=== PATIENT | female | born 1975 | race Caucasian/White ===

== ENCOUNTER 2017-06-04 07:52 | Outpatient (CLI) | payer OTHER ==
[~2017-06-04 07:52] MED LIST: AMOX-426 PO
[2017-06-04 09:17] LABS: BASOPHILS % (AUTO) 0.6 % (0.0-2.0); EOSINOPHILS # (AUTO) 0.1 K/uL (0.0-0.4); HEMATOCRIT 33.8 % (36-48); HEMOGLOBIN 10.8 g/dL (12.0-16.0); LYMPHOCYTES # (AUTO) 1.5 K/uL (1.0-5.5); LYMPHOCYTES % (AUTO) 28.4 % (20.5-51.5); MEAN CORPUSCULAR HEMOGLOBIN 26 pg (27-31); MEAN CORPUSCULAR HGB CONC 32 % (32-36); MEAN CORPUSCULAR VOLUME 81 fL (79.0-98.0); MONOCYTES # (AUTO) 0.2 K/uL (0.0-1.0); MONOCYTES % (AUTO) 4.7 % (1.7-9.3); NEUTROPHILS # (AUTO) 3.4 K/uL (1.8-7.7); NEUTROPHILS % (AUTO) 65.3 % (40.0-70.0); PLATELET COUNT (AUTO) 392 K/uL (130-430); RED BLOOD CELL COUNT(AUTO) 4.19 MIL/uL (4.2-6.2); RED CELL DISTRIBUTION WIDTH 14.5 % (9.0-15.0); WHITE BLOOD COUNT (AUTO) 5.2 K/uL (4.8-10.8)
[2017-06-04 09:25] LABS: BILIRUBIN,URINE NEGATIVE (NEGATIVE); BLOOD, URINE 1+ (NEGATIVE); CLARITY/URINE SL HAZY (CLEAR); COLOR,URINE YELLOW (YELLOW); GLUCOSE,URINE NEGATIVE (NEGATIVE); KETONES,URINE TRACE (NEGATIVE); LEUKOCYTE ESTERASE ,URINE NEGATIVE (NEGATIVE); NITRITE, URINE NEGATIVE (NEGATIVE); PROTEIN URINE NEGATIVE (NEGATIVE); UROBILINOGEN,URINE 0.2 (0.2-1.0)
[2017-06-04 09:35] LABS: BACTERIA,URINE RARE /HPF (None Seen); MUCUS,URINE 1+ /LPF (None Seen); WBC,URINE 0-3 /HPF (0-3)
[2017-06-04 09:45] LABS: ALBUMIN 3.7 g/dL (3.4-4.8); CREATININE 0.76 mg/dL (0.55-1.30); POTASSIUM 4.1 mmol/L (3.5-5.1); THYROID STIMULATING HORMONE 1.26 uIu/mL (0.34-4.82); TOTAL BILIRUBIN 0.4 mg/dL (0.0-1.0)
== END 2017-06-04 20:37 | disposition home or self-care (01) ==
LOC: SLB 07:52
PROVIDERS: ATTEND Obstetrics & Gynecology
DX: Z01.419 Encounter for gynecological examination (general) (routine) without abnormal findings (principal); R79.89 Other specified abnormal findings of blood chemistry
CPT/HCPCS: 36415; 80053; 80061; 81000-TC; 83036; 84443-TC; 85025

== ENCOUNTER 2017-06-05 14:30 | Outpatient (CLI) | payer OTHER ==
[2017-06-05 17:38] LABS: TOTAL IRON BIND. CAPACITY 495 ug/dL (250-450)
== END 2017-06-05 19:49 | disposition home or self-care (01) ==
LOC: SRD 14:30
PROVIDERS: ATTEND Internal Medicine
DX: I08.1 Rheumatic disorders of both mitral and tricuspid valves (principal); I10 Essential (primary) hypertension; R79.89 Other specified abnormal findings of blood chemistry
CPT/HCPCS: 36415; 82306; 82607; 82746; 83540-TC; 83550-TC; 93005; 93306

== ENCOUNTER 2017-06-14 11:52 | Outpatient (CLI) | payer OTHER | END 2017-06-14 17:15 | disposition home or self-care (01) | LOC: SMA 11:52 | PROVIDERS: ATTEND Obstetrics & Gynecology | DX: Z12.31 Encounter for screening mammogram for malignant neoplasm of breast (principal) | CPT/HCPCS: G0202 ==

== ENCOUNTER 2017-08-08 14:38 | Outpatient (CLI) | payer OTHER | END 2017-08-08 21:24 | disposition home or self-care (01) | LOC: SRD 14:38 | PROVIDERS: ATTEND Internal Medicine | DX: M41.85 Other forms of scoliosis, thoracolumbar region (principal) | CPT/HCPCS: 71020-TC ==

== ENCOUNTER 2018-02-18 16:31 | Outpatient (CLI) | payer OTHER | END 2018-02-18 21:18 | disposition home or self-care (01) | LOC: SRD 16:31 | PROVIDERS: ATTEND Internal Medicine | DX: M77.32 Calcaneal spur, left foot (principal) ==

== ENCOUNTER 2018-02-21 10:50 | Outpatient (CLI) | payer OTHER | END 2018-02-21 20:31 | disposition home or self-care (01) | LOC: SMI 10:50 | PROVIDERS: ATTEND Internal Medicine | DX: M77.32 Calcaneal spur, left foot (principal) | CPT/HCPCS: 73721 ==

== ENCOUNTER 2018-03-20 22:05 | Day surgery (SDC) | payer OTHER ==
[~2018-03-20] VITALS: Ht 177.8 cm; Wt 93.9 kg
[~2018-03-20 22:05] MED LIST changes: +BUPIVACAINE /DEX PF 0.75% SPINAL 2 ML AMP INJ ONE; +CEFAZOLIN 2 GM IVPB PREMIX 50 ML IV ONE; +MIDAZOLAM HCL 5 MG/ML VIAL (VERSED) IV ONE; +NS 1000 ML IV.SOLN IV ONE; +PROPOFOL 200MG/ 20ML VIAL (DIPRIVAN) IV ONE
[2018-03-20 22:10] VITALS: BP_SYST 156
--- NOTE | 2018-03-20 22:10 | NUR ---
Placed in room 07. Placed on court monitor, blood pressure machine and pulse oximeter. To gown for exam. Side rails up. Report given to GONSALO Renae.
--- NOTE | 2018-03-20 22:15 | NUR ---
Pt AAOx4 ambulated into ED c/o uncontrolled vaginal bleeding since 2044 tonight. Pt states her IUD was dislodged x 3 nights ago. Last meal was 1999 tonight, pt urinated in ED bathroom. Pt denies abdominal pain/SOB/CP/N/V/D. Skin pink dry and warm, breathing even and unlabored. VSS at the moment. No other injuries/complaints per pt/noted. Will continue to monitor.
--- NOTE | 2018-03-20 22:20 | NUR ---
ER at bedside examining patient.
--- NOTE | 2018-03-20 22:44 | NUR ---
Patient consent for surgery signed and placed in chart per patient and per Dr. David Sheffield procedure has been previously explained and patient is fully aware of procedure to be performed, comfortable signing consent at this time. Will endorse rest of pre-op care to surgical nurse.
[2018-03-20 22:58] LABS: BASOPHILS % (AUTO) 0.2 % (0.0-2.0); EOSINOPHILS # (AUTO) 0.1 K/uL (0.0-0.4); EOSINOPHILS % (AUTO) 1.2 % (0.0-4.0); HEMATOCRIT 38.3 % (36-48); LYMPHOCYTES # (AUTO) 2.3 K/uL (1.0-5.5); LYMPHOCYTES % (AUTO) 31.5 % (20.5-51.5); MEAN CORPUSCULAR HEMOGLOBIN 31 pg (27-31); MEAN CORPUSCULAR HGB CONC 34 % (32-36); MEAN CORPUSCULAR VOLUME 93 fL (79.0-98.0); MONOCYTES # (AUTO) 0.4 K/uL (0.0-1.0); MONOCYTES % (AUTO) 5.8 % (1.7-9.3); NEUTROPHILS # (AUTO) 4.6 K/uL (1.8-7.7); NEUTROPHILS % (AUTO) 61.3 % (40.0-70.0); PLATELET COUNT (AUTO) 308 K/uL (130-430); RED BLOOD CELL COUNT(AUTO) 4.14 MIL/uL (4.2-6.2); RED CELL DISTRIBUTION WIDTH 11.8 % (9.0-15.0); WHITE BLOOD COUNT (AUTO) 7.4 K/uL (4.8-10.8)
--- NOTE | 2018-03-20 23:15 | NUR ---
Patient will be admitted to care of Dr. Sheffield. Admitted to Outpatient-Surgery unit. Will go to room 123. Belongings list completed. Summary report printed. Report will be given at bedside.
[2018-03-21] MEDS ORDERED: OXYCODONE/ACETAMINOPHEN 5-325 TABLET PO PRN
[2018-03-21] MEDS ORDERED: HYDROcodone/ACETAMIN 5-325 MG TAB (NORCO/ VICODIN) PO PRN
[2018-03-21] MEDS ORDERED: TEMAZEPAM 15 MG CAPSULE PO PRN
[2018-03-21] MEDS ORDERED: fentaNYL CITRATE/PF 100 MCG/2 ML AMP IVP PRN ×2 (01:15)
[2018-03-21] MEDS ORDERED: ONDANSETRON HCL 4 MG/2 ML VIAL IVP PRN ×2 (01:15)
[2018-03-21] MEDS ORDERED: KETOROLAC TROMETHAMINE 30 MG VIAL IVP PRN (01:15)
--- NOTE | 2018-03-21 01:52 | NUR ---
RECEIVED CALL INFORMING NURSE PT ON HER WAY TO FLOOR VIA ROBBY
[2018-03-21 01:55] VITALS: BP_SYST 137
--- NOTE | 2018-03-21 01:55 | NUR ---
OPENING NOTE RECEIVED PT FROM OR VIA ROBBY. PT IS AOX4, PT IS RESTING IN BED WITH EYES OPEN. RECEIVED REPORT FROM OR NURSE MAE. PT POST OP D &C. PT RECEIVED SPINAL ANESTHESIA, SHE IS AWAKE, ALERT AND ORIENTED, PT ABLE TO WIGGLE TOES AND MOVE AROUND FOR THE MOST PART, BUT STILL FEELS LEGS VERY HEAVY. PT'S VITAL SIGNS WNL. PT'S CHEST RISE EVEN AND UNLABORED. PT DOES NOT APPEAR TO BE IN ANY ACUTE DISTRESS OR PAIN AT THIS TIME. BREATHING IS EVEN AN UNLABORED. IV SITE PATENT, DRY AND CLEAN. PT POSITIONED FOR COMFORT ALL NEEDS ADDRESSED. PT ORIENTED TO HOSPITAL ROOM, PT EDUCATED HOW TO USE CALL LIGHT, PT VERBALIZED UNDERSTANDING. SAFETY MEASURES IN PLACE. CALL LIGHT WITHIN REACH, BED IN LOWEST POSITION, BED WHEELS LOCKED, SIDE RAILS UP X2, BEDSIDE TABLE WITHIN REACH, BED ALARM ON. WILL CONTINUE WITH PT'S POC AND MONITORING PT'S VITAL SIGNS.
--- NOTE | 2018-03-21 03:46 | NUR ---
RN ROUNDS PT RESTING IN BED WITH EYES CLOSED. PT'S CHEST RISE EVEN AND UNLABORED. PT DOES NOT APPEAR TO BE IN ANY ACUTE DISTRESS OR PAIN AT THIS TIME. BREATHING IS EVEN AN UNLABORED. SAFETY MEASURES IN PLACE. CALL LIGHT WITHIN REACH, BED IN LOWEST POSITION, BED WHEELS LOCKED, SIDE RAILS UP X2, BEDSIDE TABLE WITHIN REACH, BED ALARM ON. WILL CONTINUE WITH PT'S POC.
[2018-03-21 04:31] VITALS: BP_SYST 137
--- NOTE | 2018-03-21 05:46 | NUR ---
RN ROUNDS PT RESTING IN BED WITH EYES OPEN. PT'S CHEST RISE EVEN AND UNLABORED. PT DOES NOT APPEAR TO BE IN ANY ACUTE DISTRESS OR PAIN AT THIS TIME. BREATHING IS EVEN AN UNLABORED. PT ABLE TO AMBULATE WITH A STEADY GAIT TO RESTROOM AND BACK INTO BED, SCANT BLEEDING NOTED. NO OTHER CONCERNS AT THIS TIME. WILL CONTINUE TO MONITOR PT. SAFETY MEASURES IN PLACE. CALL LIGHT WITHIN REACH, BED IN LOWEST POSITION, BED WHEELS LOCKED, SIDE RAILS UP X2, BEDSIDE TABLE WITHIN REACH, BED ALARM ON. WILL CONTINUE WITH PT'S POC.
--- NOTE | 2018-03-21 07:28 | NUR ---
CLOSING NOTE WILL ENDORSE PT REPORT TO DAY SHIFT NURSE. PT RESTING IN BED WITH EYES CLOSED. PT'S CHEST RISE EVEN AND UNLABORED. PT DOES NOT APPEAR TO BE IN ANY ACUTE DISTRESS OR PAIN AT THIS TIME. NO COMPLAINTS OF PAIN THROUGHOUT SHIFT. BREATHING IS EVEN AN UNLABORED. PT WAS ABLE TO AMBULATE WITH A STEADY GAIT TO RESTROOM AND BACK INTO BED, SCANT BLEEDING NOTED. ALL NEEDS MET THROUGHOUT SHIFT. WILL CONTINUE TO MONITOR PT. SAFETY MEASURES IN PLACE. CALL LIGHT WITHIN REACH, BED IN LOWEST POSITION, BED WHEELS LOCKED, SIDE RAILS UP X2, BEDSIDE TABLE WITHIN REACH, BED ALARM ON. WILL CONTINUE WITH PT'S POC.
--- NOTE | 2018-03-21 07:30 | NUR ---
Opening Note: Patient laying in bed resting. Patient denies pain and discomfort. Breathing is even and unlabored with no distress noted. No current needs. Patient stated she will be picked up by at 0830. Patient in stable condition. Safety precautions in place; bed in lowest position, wheels locked, side rails x3, bed alarm activated and call light within reach. Will continue to monitor.
[2018-03-21 08:27] VITALS: BP_SYST 155
[2018-03-21] MEDS ORDERED: LISI2.5T48 PO (08:41)
[2018-03-21] MEDS ORDERED: MULT-1117 (08:41)
[2018-03-21] MEDS ORDERED: VIT1TABL94 PO (08:41)
[2018-03-21] MEDS ORDERED: FERR-69 PO (08:41)
--- NOTE | 2018-03-21 08:55 | NUR ---
D/C Patient Patient given medication reconciliation form and D/C instructions. Exit Care provided. Patient verbalized understanding. MD discussed with patient the results and treatment provided. Ambulatory with steady gait for discharge to home. Patient in stable condition, ID band removed. Patient educated on pain management. All belongings sent with patient.
== END 2018-03-21 08:55 | disposition home or self-care (01) ==
LOC: SED 22:05 → SDS 23:02 → SMU 23:15 → SDS 23:18 → SMU 23:19 → SDS 03-21 08:55
PROVIDERS: ATTEND Specialist
DX: N84.0 Polyp of corpus uteri (principal); Z98.890 Other specified postprocedural states; I10 Essential (primary) hypertension; J45.909 Unspecified asthma, uncomplicated; Z79.899 Other long term (current) drug therapy
CPT/HCPCS: 36415; 58558; 85025; 88305; 99285; J0690; J2250; J2704; J3490; J7030

== ENCOUNTER 2018-05-24 05:45 | Day surgery (SDC) | payer OTHER ==
[~2018-05-24] VITALS: Ht 177.8 cm; Wt 99.8 kg
[~2018-05-24 05:45] MED LIST changes: -AMOX-426 PO; -BUPIVACAINE /DEX PF 0.75% SPINAL 2 ML AMP INJ ONE; -CEFAZOLIN 2 GM IVPB PREMIX 50 ML IV ONE; +FERR-69 PO; +LISI2.5T48 PO; -MIDAZOLAM HCL 5 MG/ML VIAL (VERSED) IV ONE; +MULT-1117; -NS 1000 ML IV.SOLN IV ONE; -PROPOFOL 200MG/ 20ML VIAL (DIPRIVAN) IV ONE; +VIT1TABL94 PO
[2018-05-24] MEDS ORDERED: CEFAZOLIN SOD 2 GM in D5W 50 ML IV ONE (07:00)
[2018-05-24 07:01] LABS: BASOPHILS % (AUTO) 0.7 % (0.0-2.0); EOSINOPHILS # (AUTO) 0.1 K/uL (0.0-0.4); EOSINOPHILS % (AUTO) 0.8 % (0.0-4.0); HEMATOCRIT 40.6 % (36-48); HEMOGLOBIN 13.1 g/dL (12.0-16.0); LYMPHOCYTES # (AUTO) 2.1 K/uL (1.0-5.5); LYMPHOCYTES % (AUTO) 30.3 % (20.5-51.5); MEAN CORPUSCULAR HEMOGLOBIN 30 pg (27-31); MEAN CORPUSCULAR HGB CONC 32 % (32-36); MEAN CORPUSCULAR VOLUME 94 fL (79.0-98.0); MONOCYTES # (AUTO) 0.4 K/uL (0.0-1.0); MONOCYTES % (AUTO) 6.1 % (1.7-9.3); NEUTROPHILS # (AUTO) 4.4 K/uL (1.8-7.7); NEUTROPHILS % (AUTO) 62.1 % (40.0-70.0); PLATELET COUNT (AUTO) 329 K/uL (130-430); RED BLOOD CELL COUNT(AUTO) 4.32 MIL/uL (4.2-6.2); RED CELL DISTRIBUTION WIDTH 11.7 % (9.0-15.0)
[2018-05-24] MEDS ORDERED: LR 1,000 ML IV.SOLN IV ONE (07:05)
[2018-05-24] MEDS ORDERED: ONDANSETRON HCL 4 MG/2 ML VIAL IVP ONE ×2 (07:05→12:30)
[2018-05-24] MEDS ORDERED: PROPOFOL 200MG/ 20ML VIAL (DIPRIVAN) IV ONE (07:05)
[2018-05-24] MEDS ORDERED: BUPIVACAINE /EPINEPHRINE/PF 0.25% 30 ML VIAL INJ ONE (07:05)
[2018-05-24] MEDS ORDERED: MIDAZOLAM HCL 5 MG/5 ML VIAL IVP ONE (07:05)
[2018-05-24] MEDS ORDERED: NS 1000 ML IV.SOLN IV ONE (07:05)
[2018-05-24] MEDS ORDERED: ROCURONIUM BROMIDE 10 MG/ML (ZEMURON) IV ONE (07:05)
[2018-05-24] MEDS ORDERED: SEVOFLURANE 15 MIN GAS INH ONE (07:05)
[2018-05-24] MEDS ORDERED: KETOROLAC TROMETHAMINE 30 MG VIAL IVP ONE (07:05)
[2018-05-24] MEDS ORDERED: fentaNYL CITRATE 250 MCG/5 ML AMP IV ONE (07:05)
[2018-05-24] MEDS ORDERED: DEXAMETHASONE SOD PHOSPHATE 4 MG/ML VIAL IVP ONE (07:05)
[2018-05-24] MEDS ORDERED: LIDOCAINE/EPI 1% 1:100000 20 ML VIAL INJ ONE (07:05)
[2018-05-24] MEDS ORDERED: NS IRRIG SOLN 1000 ML IR ONE (07:05)
[2018-05-24 07:10] LABS: BILIRUBIN,URINE NEGATIVE (NEGATIVE); BLOOD, URINE NEGATIVE (NEGATIVE); CLARITY/URINE CLEAR (CLEAR); COLOR,URINE YELLOW (YELLOW); GLUCOSE,URINE NEGATIVE (NEGATIVE); KETONES,URINE NEGATIVE (NEGATIVE); LEUKOCYTE ESTERASE ,URINE NEGATIVE (NEGATIVE); NITRITE, URINE NEGATIVE (NEGATIVE); PROTEIN URINE NEGATIVE (NEGATIVE); UROBILINOGEN,URINE 0.2 (0.2-1.0)
[2018-05-24] MEDS ORDERED: CEFAZOLIN 2 GM IVPB PREMIX 50 ML IV ONE (07:18)
[2018-05-24 07:19] LABS: ALBUMIN 3.6 g/dL (3.4-4.8); CALCIUM 8.9 mg/dL (8.4-11.0); CREATININE 0.72 mg/dL (0.55-1.30); POTASSIUM 4.1 mmol/L (3.5-5.1); THYROID STIMULATING HORMONE 2.4 uIu/mL (0.34-4.82); TOTAL BILIRUBIN 0.7 mg/dL (0.0-1.0)
[2018-05-24 07:22] LABS: TOTAL IRON BIND. CAPACITY 437 ug/dL (250-450)
[2018-05-24] MEDS ORDERED: ONDANSETRON HCL 4 MG/2 ML VIAL IVP PRN (08:30)
[2018-05-24] MEDS ORDERED: HYDROcodone/ACETAMIN 5-325 MG TAB (NORCO/ VICODIN) PO PRN (08:30)
[2018-05-24] MEDS ORDERED: OXYCODONE/ACETAMINOPHEN 5-325 TABLET PO PRN ×2 (08:30)
[2018-05-24] MEDS ORDERED: LR 1,000 ML IV SCH (09:08)
[2018-05-24] MEDS ORDERED: MEPERIDINE HCL/PF 25 MG/ML DISP.SYRIN IVP PRN (09:15)
[2018-05-24] MEDS ORDERED: HYDROmorphone 2 MG/ML VIAL IVP PRN ×2 (09:15)
[2018-05-24] MEDS ORDERED: HYDROmorphone 1 MG INJ. 1 MG/ML AMPUL IVP PRN (09:15)
[2018-05-24 10:35] VITALS: BP_SYST 111
[2018-05-24] MEDS ORDERED: NALBUPHINE HCL 10 MG/ML AMP ONE (12:09)
[2018-05-24] MEDS ORDERED: NALBUPHINE HCL 10 MG/ML AMP IVP ONE (12:30)
[2018-05-24] MEDS ORDERED: HYDROmorphone 2 MG/ML VIAL IVP ONE (12:30)
== END 2018-05-24 15:10 | disposition home or self-care (01) ==
LOC: SMU 05:45 → SDS 05:45 → SPU 12:27 → SDS 15:10
PROVIDERS: ATTEND Specialist
DX: N85.2 Hypertrophy of uterus (principal); L72.11 Pilar cyst; D23.4 Other benign neoplasm of skin of scalp and neck; J30.5 Allergic rhinitis due to food; I10 Essential (primary) hypertension; E78.5 Hyperlipidemia, unspecified; J45.998 Other asthma; E66.3 Overweight; M13.0 Polyarthritis, unspecified; Z83.3 Family history of diabetes mellitus; Z79.899 Other long term (current) drug therapy
CPT/HCPCS: 11422 ×8; 11424; 36415; 58563; 80053; 80061; 81003; 83036; 83540; 83550; 84443; 84702; 85025; 86886; 86900; 86901; 88305; 93005; J0690; J1100; J1170; J1885; J2250; J2300; J2405; J2704; J3010; J3490; J7030; J7120

== ENCOUNTER 2018-07-25 12:25 | Outpatient (CLI) | payer OTHER | END 2018-07-25 19:01 | disposition home or self-care (01) | LOC: SMA 12:25 | PROVIDERS: ATTEND Obstetrics & Gynecology | DX: Z12.31 Encounter for screening mammogram for malignant neoplasm of breast (principal) | CPT/HCPCS: 77067 ==

== ENCOUNTER 2019-06-01 07:27 | Outpatient (CLI) | payer OTHER ==
[2019-06-01 09:05] LABS: BASOPHILS % (AUTO) 0.6 % (0.0-2.0); EOSINOPHILS # (AUTO) 0.1 K/uL (0.0-0.4); EOSINOPHILS % (AUTO) 0.9 % (0.0-4.0); HEMATOCRIT 41.1 % (36-48); HEMOGLOBIN 14.2 g/dL (12.0-16.0); LYMPHOCYTES # (AUTO) 1.5 K/uL (1.0-5.5); LYMPHOCYTES % (AUTO) 26.1 % (20.5-51.5); MEAN CORPUSCULAR HEMOGLOBIN 33 pg (27-31); MEAN CORPUSCULAR HGB CONC 35 % (32-36); MEAN CORPUSCULAR VOLUME 94 fL (79.0-98.0); MONOCYTES # (AUTO) 0.3 K/uL (0.0-1.0); NEUTROPHILS # (AUTO) 3.8 K/uL (1.8-7.7); NEUTROPHILS % (AUTO) 66.4 % (40.0-70.0); PLATELET COUNT (AUTO) 299 K/uL (130-430); RED BLOOD CELL COUNT(AUTO) 4.35 MIL/uL (4.2-6.2); RED CELL DISTRIBUTION WIDTH 12.7 % (9.0-15.0); WHITE BLOOD COUNT (AUTO) 5.7 K/uL (4.8-10.8)
[2019-06-01 09:11] LABS: BILIRUBIN,URINE NEGATIVE (NEGATIVE); CLARITY/URINE CLEAR (CLEAR); COLOR,URINE YELLOW (YELLOW); GLUCOSE,URINE NEGATIVE (NEGATIVE); KETONES,URINE NEGATIVE (NEGATIVE); LEUKOCYTE ESTERASE ,URINE NEGATIVE (NEGATIVE); NITRITE, URINE NEGATIVE (NEGATIVE); PROTEIN URINE NEGATIVE (NEGATIVE); UROBILINOGEN,URINE 0.2 (0.2-1.0)
[2019-06-01 09:16] LABS: BLOOD, URINE TRACE (NEGATIVE)
[2019-06-01 09:18] LABS: BACTERIA,URINE FEW /HPF (None Seen); RBC,URINE 0-3 /HPF (0-3); WBC,URINE 0-3 /HPF (0-3)
[2019-06-01 09:35] LABS: CALCIUM 8.9 mg/dL (8.4-11.0); CREATININE 0.79 mg/dL (0.55-1.30); POTASSIUM 4.5 mmol/L (3.5-5.1); THYROID STIMULATING HORMONE 1.88 uIu/mL (0.36-3.74); TOTAL BILIRUBIN 0.6 mg/dL (0.0-1.0)
[2019-06-03 01:40] LABS: HEMOGLOBIN A1C 5.4 % (4.8-5.6)
== END 2019-06-01 20:15 | disposition home or self-care (01) ==
LOC: SLB 07:27
PROVIDERS: ATTEND Internal Medicine
DX: Z00.00 Encounter for general adult medical examination without abnormal findings (principal)
CPT/HCPCS: 36415; 80053; 80061; 81000-TC; 82306; 82607; 83036; 84443-TC; 85025

== ENCOUNTER 2019-06-24 12:03 | Outpatient (CLI) | payer OTHER | END 2019-06-24 21:09 | disposition home or self-care (01) | LOC: SCA 12:03 | PROVIDERS: ATTEND Internal Medicine | DX: R07.9 Chest pain, unspecified (principal) | CPT/HCPCS: 93005; 93306 ==

== ENCOUNTER 2019-09-08 14:29 | Outpatient (CLI) | payer OTHER | END 2019-09-08 21:23 | disposition home or self-care (01) | LOC: SRD 14:29 | PROVIDERS: ATTEND Obstetrics & Gynecology | DX: R91.8 Other nonspecific abnormal finding of lung field (principal); R06.02 Shortness of breath | CPT/HCPCS: 71046-TC ==

== ENCOUNTER 2020-03-15 18:12 | Inpatient (IN) | payer OTHER, SELFPAY ==
[~2020-03-15] VITALS: Ht 175.3 cm; Wt 114.3 kg
[2020-03-15 18:17] VITALS: BP_SYST 180
[2020-03-15] MEDS ORDERED: ONDANSETRON HCL 4 MG/2 ML VIAL IVP ONE (18:30)
[2020-03-15] MEDS ORDERED: hydrALAZINE HCL 20 MG/ML VIAL IVP ONE (18:30)
[2020-03-15 19:15] LABS: BASOPHILS # (AUTO) 0.1 K/uL (0.0-0.2); BASOPHILS % (AUTO) 0.6 % (0.0-2.0); EOSINOPHILS # (AUTO) 0.1 K/uL (0.0-0.4); HEMATOCRIT 41.6 % (36-48); HEMOGLOBIN 13.7 g/dL (12.0-16.0); LYMPHOCYTES # (AUTO) 2.3 K/uL (1.0-5.5); LYMPHOCYTES % (AUTO) 24.9 % (20.5-51.5); MEAN CORPUSCULAR HEMOGLOBIN 31 pg (27-31); MEAN CORPUSCULAR HGB CONC 33 % (32-36); MEAN CORPUSCULAR VOLUME 94 fL (79.0-98.0); MONOCYTES # (AUTO) 0.7 K/uL (0.0-1.0); MONOCYTES % (AUTO) 7.4 % (1.7-9.3); NEUTROPHILS # (AUTO) 6.2 K/uL (1.8-7.7); NEUTROPHILS % (AUTO) 66.1 % (40.0-70.0); PLATELET COUNT (AUTO) 257 K/uL (130-430); RED BLOOD CELL COUNT(AUTO) 4.41 MIL/uL (4.2-6.2); RED CELL DISTRIBUTION WIDTH 12.7 % (9.0-15.0); WHITE BLOOD COUNT (AUTO) 9.4 K/uL (4.8-10.8)
[2020-03-15 19:41] LABS: ANION GAP 9 (5-15); CALCIUM 9.5 mg/dL (8.4-11.0); CHLORIDE 103 mmol/L (98-107); CREATININE 0.72 mg/dL (0.55-1.30); GLUCOSE 85 mg/dL (70-99); POTASSIUM 3.7 mmol/L (3.5-5.1); SODIUM SERUM 138 mmol/L (136-145); UREA NITROGEN, BLOOD 14 mg/dL (8-21)
[2020-03-15 19:54] LABS: ALANINE AMINOTRANSFERASE 42 U/L (12-78); ALBUMIN 3.7 g/dL (3.4-4.8); ASPARTATE AMINOTRANSFERASE 22 U/L (10-37); LIPASE 119 U/L (73-393); TOTAL BILIRUBIN 0.3 mg/dL (0.0-1.0)
[2020-03-15 19:57] LABS: GFR AFRICAN AMERICAN 112 mL/min (>90)
[2020-03-15] MEDS ORDERED: ASA81 PO (21:06)
[2020-03-15] MEDS ORDERED: LISI-209 PO (21:06)
[2020-03-15] MEDS ORDERED: LIP40 PO (21:06)
[2020-03-15] MEDS ORDERED: D5LR 1,000 ML IV SCH (21:24)
[2020-03-15] MEDS ORDERED: PIPERACILLIN/TAZO 3.375/DEX-IS 50 ML IV ONE (21:30)
[2020-03-15] MEDS ORDERED: PIPERACILLIN/TAZOBACTAM 3.375 GM/VIAL (ZOSYN) IV ONE (22:01)
[2020-03-15] MEDS ORDERED: MORPHINE 2 MG/ML INJ. SYRINGE IVP ONE (22:15)
[2020-03-15 22:42] VITALS: BP_SYST 156
[2020-03-15] MEDS ORDERED: KETOROLAC TROMETHAMINE 15 MG VIAL IVP PRN (23:00)
[2020-03-15] MEDS ORDERED: ONDANSETRON HCL 4 MG/2 ML VIAL IVP PRN (23:00)
[2020-03-15] MEDS ORDERED: ACETAMINOPHEN 325 MG TABLET PO PRN (23:00)
[2020-03-15] MEDS ORDERED: MORPHINE 4 MG/ML INJ. SYRINGE IVP PRN (23:00)
[2020-03-15] MEDS ORDERED: MAG-AL HYDROX/SIMETH 30 ML UDC PO PRN (23:15)
[2020-03-15] MEDS ORDERED: PANTOPRAZOLE SODIUM 40 MG/VIAL (PROTONIX) IVP ONE (23:15)
[2020-03-15] MEDS ORDERED: cloNIDine HCL 0.1 MG TABLET PO PRN (23:15)
[2020-03-15 23:30] VITALS: BP_SYST 117
[2020-03-15 23:33] LABS: BILIRUBIN,URINE NEGATIVE (NEGATIVE); BLOOD, URINE NEGATIVE (NEGATIVE); CLARITY/URINE CLEAR (CLEAR); COLOR,URINE YELLOW (YELLOW); GLUCOSE,URINE NEGATIVE (NEGATIVE); KETONES,URINE NEGATIVE (NEGATIVE); LEUKOCYTE ESTERASE ,URINE NEGATIVE (NEGATIVE); NITRITE, URINE NEGATIVE (NEGATIVE); PROTEIN URINE NEGATIVE (NEGATIVE); UROBILINOGEN,URINE 0.2 (0.2-1.0)
[2020-03-15 23:37] LABS: HCG,QUAL RESULT NEGATIVE (NEGATIVE)
[2020-03-16] MEDS: TEMAZEPAM 15 MG CAPSULE PO SCH ×2 (00:04→23:11)
[2020-03-16] MEDS ORDERED: PIPERACILLIN/TAZOBACTAM 3.375 GM/VIAL (ZOSYN) IV ONE (01:37)
[2020-03-16] MEDS: PIPERACILLIN/TAZO 3.375/DEX-IS 50 ML IV SCH ×4 (05:47→23:12)
[2020-03-16 07:18] LABS: BASOPHILS % (AUTO) 0.3 % (0.0-2.0); EOSINOPHILS # (AUTO) 0.1 K/uL (0.0-0.4); EOSINOPHILS % (AUTO) 0.9 % (0.0-4.0); HEMATOCRIT 37.8 % (36-48); HEMOGLOBIN 12.5 g/dL (12.0-16.0); LYMPHOCYTES # (AUTO) 1.9 K/uL (1.0-5.5); LYMPHOCYTES % (AUTO) 25.6 % (20.5-51.5); MEAN CORPUSCULAR HEMOGLOBIN 31 pg (27-31); MEAN CORPUSCULAR HGB CONC 33 % (32-36); MEAN CORPUSCULAR VOLUME 94 fL (79.0-98.0); MONOCYTES # (AUTO) 0.4 K/uL (0.0-1.0); NEUTROPHILS % (AUTO) 67.2 % (40.0-70.0); PLATELET COUNT (AUTO) 235 K/uL (130-430); RED BLOOD CELL COUNT(AUTO) 4.01 MIL/uL (4.2-6.2); RED CELL DISTRIBUTION WIDTH 12.5 % (9.0-15.0); WHITE BLOOD COUNT (AUTO) 7.5 K/uL (4.8-10.8)
[2020-03-16 07:23] LABS: PROTHROMBIN TIME 10.2 SECS (9.5-12.5)
[2020-03-16 08:14] LABS: FREE T4 (FREE THYROXINE) 0.9 ng/dl (0.8-1.5)
[2020-03-16 08:29] VITALS: BP_SYST 136
[2020-03-16 08:44] LABS: ANION GAP 5 (5-15); CALCIUM 8.6 mg/dL (8.4-11.0); CHLORIDE 104 mmol/L (98-107); GLUCOSE 106 mg/dL (70-99); SODIUM SERUM 138 mmol/L (136-145)
[2020-03-16 08:45] LABS: ALANINE AMINOTRANSFERASE 36 U/L (12-78); ASPARTATE AMINOTRANSFERASE 18 U/L (10-37); C-REACTIVE PROTEIN QUANT 0.4 mg/dL (0-0.5); CHOLESTEROL 140 mg/dL (<200); CREATININE 0.85 mg/dL (0.55-1.30); GFR AFRICAN AMERICAN 93 mL/min (>90); TOTAL BILIRUBIN 0.6 mg/dL (0.0-1.0); TRIGLYCERIDES 166 mg/dL (30-150); UREA NITROGEN, BLOOD 11 mg/dL (8-21)
[2020-03-16 08:46] LABS: AMYLASE 40 U/L (0-100); HDL CHOLESTEROL 49 mg/dL (>55); LDL CHOLESTEROL 73 mg/dL (<100); LIPASE 104 U/L (73-393)
[2020-03-16] MEDS ORDERED: LISINOPRIL 5 MG TABLET PO SCH (09:00)
[2020-03-16] MEDS: ATORVASTATIN 20 MG TABLET PO SCH (09:09)
[2020-03-16] MEDS: PANTOPRAZOLE SODIUM 40 MG/VIAL (PROTONIX) IVP SCH ×2 (09:10→20:52)
[2020-03-16] MEDS: ASPIRIN 81 MG TAB.CHEW PO SCH (09:11)
[2020-03-16] MEDS: FERROUS SULFATE 325 MG TABLET.DR PO SCH (09:11)
[2020-03-16] MEDS: LISINOPRIL 5 MG TABLET PO SCH (09:11)
[2020-03-16] MEDS: MULTIVITAMINS TAB 1 TABLET PO SCH (09:12)
[2020-03-16 11:36] VITALS: BP_SYST 127
[2020-03-16 11:53] LABS: ERYTHROCYTE SEDIMENTATION RATE 13 MM/HR (0-20)
[2020-03-16] MEDS ORDERED: fentaNYL CITRATE/PF 100 MCG/2 ML AMP IVP PRN ×2 (13:15)
[2020-03-16] MEDS ORDERED: ONDANSETRON HCL 4 MG/2 ML VIAL IVP PRN ×2 (13:15→13:45)
[2020-03-16] MEDS ORDERED: HYDROcodone/ACETAMIN 5-325 MG TAB (NORCO/ VICODIN) PO PRN (13:45)
[2020-03-16] MEDS ORDERED: ACETAMINOPHEN 325 MG TABLET PO PRN (13:45)
[2020-03-16] MEDS ORDERED: NALOXONE HCL 0.4 MG/ML AMP (NARCAN) IVP PRN ×2 (13:45)
[2020-03-16 13:51] VITALS: BP_SYST 127
[2020-03-16] MEDS ORDERED: fentaNYL CITRATE/PF 100 MCG/2 ML AMP ONE (13:55)
[2020-03-16] MEDS ORDERED: ONDANSETRON HCL 4 MG/2 ML VIAL ONE (13:55)
[2020-03-16] MEDS ORDERED: PROPOFOL 200MG/ 20ML VIAL (DIPRIVAN) IV ONE (13:55)
[2020-03-16] MEDS ORDERED: MIDAZOLAM HCL 5 MG/ML VIAL (VERSED) IV ONE (13:55)
[2020-03-16] MEDS ORDERED: BUPIVACAINE /EPINEPHRINE/PF 0.25% 30 ML VIAL INJ ONE (13:55)
[2020-03-16] MEDS ORDERED: PIPERACILLIN/TAZOBACTAM 3.375 GM/DEX-IS 50 ML PIGGYBACK IV ONE (13:55)
[2020-03-16] MEDS ORDERED: LIDOCAINE 1% 10 MG/ML, 20 ML MDV ONE (13:55)
[2020-03-16] MEDS ORDERED: LR 1,000 ML IV.SOLN IV ONE (13:55)
[2020-03-16] MEDS ORDERED: GLYCOPYRROLATE 0.2 MG/ML VIAL ONE (13:55)
[2020-03-16] MEDS ORDERED: SEVOFLURANE 15 MIN GAS INH ONE (13:55)
[2020-03-16] MEDS ORDERED: BUPIVACAINE /PF 0.25% 30 ML VIAL INJ ONE (13:55)
[2020-03-16] MEDS ORDERED: KETOROLAC TROMETHAMINE 30 MG VIAL ONE (13:55)
[2020-03-16] MEDS ORDERED: ROCURONIUM BROMIDE 10 MG/ML (ZEMURON) ONE (13:55)
[2020-03-16] MEDS ORDERED: NEOSTIGMINE METHYLSULFATE 1 MG/ML, 10 ML VIAL ONE (13:55)
[2020-03-16 15:00] VITALS: BP_SYST 118
[2020-03-16] MEDS: HYDROmorphone 1 MG INJ. 1 MG/ML AMPUL IVP PRN (17:49)
[2020-03-16] MEDS: D5/0.45 NS 1,000 ML IV SCH ×2 (17:59→23:11)
[2020-03-16 21:00] VITALS: BP_SYST 128
[2020-03-17 01:36] VITALS: BP_SYST 98
[2020-03-17 05:14] LABS: HEMOGLOBIN A1C 5.4 % (4.8-5.6)
[2020-03-17] MEDS: PIPERACILLIN/TAZO 3.375/DEX-IS 50 ML IV SCH ×3 (06:24→17:27)
[2020-03-17] MEDS: D5/0.45 NS 1,000 ML IV SCH ×2 (06:26→20:19)
[2020-03-17 06:40] LABS: BASOPHILS % (AUTO) 0.4 % (0.0-2.0); EOSINOPHILS % (AUTO) 0.5 % (0.0-4.0); HEMOGLOBIN 11.8 g/dL (12.0-16.0); LYMPHOCYTES # (AUTO) 1.6 K/uL (1.0-5.5); LYMPHOCYTES % (AUTO) 21.3 % (20.5-51.5); MEAN CORPUSCULAR HEMOGLOBIN 32 pg (27-31); MEAN CORPUSCULAR HGB CONC 34 % (32-36); MEAN CORPUSCULAR VOLUME 96 fL (79.0-98.0); MONOCYTES # (AUTO) 0.5 K/uL (0.0-1.0); MONOCYTES % (AUTO) 6.3 % (1.7-9.3); NEUTROPHILS # (AUTO) 5.4 K/uL (1.8-7.7); NEUTROPHILS % (AUTO) 71.5 % (40.0-70.0); PLATELET COUNT (AUTO) 219 K/uL (130-430); RED BLOOD CELL COUNT(AUTO) 3.66 MIL/uL (4.2-6.2); RED CELL DISTRIBUTION WIDTH 12.7 % (9.0-15.0); WHITE BLOOD COUNT (AUTO) 7.6 K/uL (4.8-10.8)
[2020-03-17 07:18] LABS: ALBUMIN 2.7 g/dL (3.4-4.8); CALCIUM 8.4 mg/dL (8.4-11.0); CREATININE 0.76 mg/dL (0.55-1.30); POTASSIUM 3.9 mmol/L (3.5-5.1); TOTAL BILIRUBIN 0.8 mg/dL (0.0-1.0)
[2020-03-17 08:19] VITALS: BP_SYST 126
[2020-03-17] MEDS: PANTOPRAZOLE SODIUM 40 MG/VIAL (PROTONIX) IVP SCH ×2 (08:52→20:18)
[2020-03-17] MEDS: ASPIRIN 81 MG TAB.CHEW PO SCH (08:53)
[2020-03-17] MEDS: ATORVASTATIN 20 MG TABLET PO SCH (08:53)
[2020-03-17] MEDS: KETOROLAC TROMETHAMINE 30 MG VIAL IVP PRN ×2 (08:53→20:55)
[2020-03-17] MEDS: FERROUS SULFATE 325 MG TABLET.DR PO SCH (08:53)
[2020-03-17] MEDS: MULTIVITAMINS TAB 1 TABLET PO SCH (08:53)
[2020-03-17] MEDS: SIMETHICONE 80 MG TAB.CHEW PO SCH ×4 (08:53→20:18)
[2020-03-17] MEDS: FOLIC ACID PO SCH (08:56)
[2020-03-17] MEDS: VIT D3 PO SCH (08:56)
[2020-03-17] MEDS: LISINOPRIL 5 MG TABLET PO SCH (08:56)
[2020-03-17] MEDS: B6 PO SCH (08:56)
[2020-03-17] MEDS: B12 PO SCH (08:56)
[2020-03-17] MEDS: B2 PO SCH (08:56)
[2020-03-17 12:28] VITALS: BP_SYST 122
[2020-03-17 16:24] VITALS: BP_SYST 113
[2020-03-17 20:00] VITALS: BP_SYST 119
[2020-03-17] MEDS: TEMAZEPAM 15 MG CAPSULE PO SCH (20:54)
[2020-03-18] VITALS: BP_SYST 115
[2020-03-18] MEDS: PIPERACILLIN/TAZO 3.375/DEX-IS 50 ML IV SCH ×2 (00:03→06:26)
[2020-03-18] MEDS: D5/0.45 NS 1,000 ML IV SCH (06:26)
[2020-03-18] MEDS: HYDROmorphone 1 MG INJ. 1 MG/ML AMPUL IVP PRN (06:37)
[2020-03-18] MEDS: B12 PO SCH (08:44)
[2020-03-18] MEDS: FOLIC ACID PO SCH (08:44)
[2020-03-18] MEDS: B2 PO SCH (08:44)
[2020-03-18] MEDS: VIT D3 PO SCH (08:44)
[2020-03-18] MEDS: B6 PO SCH (08:44)
[2020-03-18] MEDS: ATORVASTATIN 20 MG TABLET PO SCH (08:51)
[2020-03-18] MEDS: PANTOPRAZOLE SODIUM 40 MG/VIAL (PROTONIX) IVP SCH (08:51)
[2020-03-18] MEDS: ASPIRIN 81 MG TAB.CHEW PO SCH (08:51)
[2020-03-18] MEDS: SIMETHICONE 80 MG TAB.CHEW PO SCH (08:51)
[2020-03-18] MEDS: MULTIVITAMINS TAB 1 TABLET PO SCH (08:51)
[2020-03-18] MEDS: FERROUS SULFATE 325 MG TABLET.DR PO SCH (08:51)
[2020-03-18] MEDS: LISINOPRIL 5 MG TABLET PO SCH (08:52)
[2020-03-18 09:02] VITALS: BP_SYST 122
[2020-03-18 11:29] VITALS: BP_SYST 122
[2020-03-18] MEDS: KETOROLAC TROMETHAMINE 30 MG VIAL IVP PRN (11:45)
== END 2020-03-18 12:00 | disposition home or self-care (01) | DRG 343 ==
LOC: SED 18:12 → STU 21:24
PROVIDERS: ADMIT Internal Medicine; ATTEND Internal Medicine
PROC: 0D9J4ZZ Drainage of Appendix, Percutaneous Endoscopic Approach (ICD-10-PCS; principal; 2020-03-16 11:30)
DX: K35.80 Unspecified acute appendicitis (principal); R07.89 Other chest pain; E78.5 Hyperlipidemia, unspecified; I10 Essential (primary) hypertension; J45.909 Unspecified asthma, uncomplicated; K80.20 Calculus of gallbladder without cholecystitis without obstruction; E66.01 Morbid (severe) obesity due to excess calories; Z79.82 Long term (current) use of aspirin; Z79.899 Other long term (current) drug therapy; Z83.3 Family history of diabetes mellitus; Z03.818 Encounter for observation for suspected exposure to other biological agents ruled out
CPT/HCPCS: 36415; 71045; 76700-TC; 80053; 80061; 81003; 82150-TC; 82306; 83036; 83690-TC; 83880; 84439; 84443-TC; 84484; 84703; 85025; 85379; 85610-TC; 85651-TC; 85730-TC; 86140; 87040-TC; 87081; 88304; 93005; 93306; 94010; 96365; 96375; 99285; C1727; C9113; G0378; J0360; J1170; J1885; J2001; J2250; J2270; J2405; J2543; J2704; J2710; J3010; J3490; J7060; J7120; U0003-CS

== ENCOUNTER 2020-07-15 10:00 | Outpatient (CLI) | payer OTHER, SELFPAY ==
[~2020-07-15 10:00] MED LIST changes: +ASA81 PO; +LIP40 PO; +LISI-209 PO
== END 2020-07-15 20:51 | disposition home or self-care (01) ==
LOC: SLB 10:00
PROVIDERS: ATTEND Internal Medicine
DX: Z20.828 Contact with and (suspected) exposure to other viral communicable diseases (principal)
CPT/HCPCS: C9803; U0003

== ENCOUNTER 2020-10-18 07:06 | Inpatient (IN) | payer OTHER, SELFPAY ==
[~2020-10-18] VITALS: Ht 177.8 cm; Wt 102.1 kg
[2020-10-18 07:15] VITALS: BP_SYST 132
--- NOTE | 2020-10-18 07:15 | NUR ---
Patient to ER bed 7 to gown for evaluation. Side rails up.
--- NOTE | 2020-10-18 07:25 | NUR ---
PATIENT STATES 8/10 PAIN TO RUQ, HX GALL STONES. SHE SPOKE TO PRIMARY MD DR. HUFFMAN WHO ADVISED PATIENT TO COME AND BE SEEN IN ER FOR EVALUATION. PATIENT ALERT AND ORIENTED X4, EQUAL CHEST RISE AND FALL, DENIES SOB, ABD SOFT ROUNDED, HAS REMAINED NPO SINCE [address] OF [address] HUFFMAN. PATIENT IS CONTIENT TO BOWEL AND BLADDER, PATIENT AMBULATES WITHOUT ANY NEED FOR ASSISITIVE DEVICES.
--- NOTE | 2020-10-18 07:30 | NUR ---
12 LEAD EKG COMPLETED AT BEDSIDE. PT TOLERATED WELL, NSR NOTED ON MONITOR.
--- NOTE | 2020-10-18 07:35 | NUR ---
PIV STARTED TO LEFT AC 22G
--- NOTE | 2020-10-18 07:40 | NUR ---
X-RAY TECH AT BEDSIDE.
--- NOTE | 2020-10-18 07:45 | NUR ---
LABS BEING DRAWN AT BEDSIDE, PATEINT TOLERATING WELL.
[2020-10-18 07:48] LABS: BASOPHILS % (AUTO) 0.7 % (0.0-2.0); EOSINOPHILS # (AUTO) 0.1 K/uL (0.0-0.4); HEMATOCRIT 39.7 % (36-48); HEMOGLOBIN 13.4 g/dL (12.0-16.0); LYMPHOCYTES # (AUTO) 1.4 K/uL (1.0-5.5); LYMPHOCYTES % (AUTO) 22.5 % (20.5-51.5); MEAN CORPUSCULAR HEMOGLOBIN 32 pg (27-31); MEAN CORPUSCULAR HGB CONC 34 % (32-36); MEAN CORPUSCULAR VOLUME 94 fL (79.0-98.0); MONOCYTES # (AUTO) 0.4 K/uL (0.0-1.0); MONOCYTES % (AUTO) 6.7 % (1.7-9.3); NEUTROPHILS # (AUTO) 4.3 K/uL (1.8-7.7); NEUTROPHILS % (AUTO) 69.1 % (40.0-70.0); PLATELET COUNT (AUTO) 227 K/uL (130-430); RED BLOOD CELL COUNT(AUTO) 4.23 MIL/uL (4.2-6.2); RED CELL DISTRIBUTION WIDTH 12.6 % (9.0-15.0); WHITE BLOOD COUNT (AUTO) 6.3 K/uL (4.8-10.8)
--- NOTE | 2020-10-18 07:55 | NUR ---
MD AT BEDSIDE ASSESSING PATIENT
[2020-10-18 08:09] LABS: CALCIUM 8.7 mg/dL (8.4-11.0); CREATININE 0.83 mg/dL (0.55-1.30); POTASSIUM 4.1 mmol/L (3.5-5.1)
[2020-10-18 08:14] LABS: ALBUMIN 3.7 g/dL (3.4-4.8); TOTAL BILIRUBIN 0.7 mg/dL (0.0-1.0)
--- NOTE | 2020-10-18 09:00 | NUR ---
Patient will be admitted to care of patient. Admitted to Medsurg unit. Will go to room 108C. Belongings list completed. Complete and up to date summary report printed. SBAR report to be given at bedside with opportunity for questions.
--- NOTE | 2020-10-18 09:20 | NUR ---
Admitting notes From ER via wheelchair with a diagnosis of Cholelithiasis , denies any abdominal pain , keep NPO for surgery in the afternoon.
--- NOTE | 2020-10-18 09:25 | NUR ---
CONSULTATION PAGED REASON FOR CONSULTATION:CHOLLITHIASIS WAS CONSULT CALED?Y PERSON WHO WAS NOTIFIED:TAYLOR CONSULTING PHYSICIAN:NARCISA VASQUEZ TIME STUDY STATISTICIAN SPECIALTY:SURGEON TIME STUDY STATISTICIAN PHONE NUMBER:[phone] REQUESTING PHYSICIAN:SOFIA DUNHAM
[2020-10-18 09:41] VITALS: BP_SYST 150
[2020-10-18] MEDS ORDERED: LISI-209 PO (09:52)
[2020-10-18] MEDS ORDERED: LIP10 PO (09:52)
[2020-10-18 10:40] LABS: HCG,QUAL RESULT NEGATIVE (NEGATIVE)
--- NOTE | 2020-10-18 11:09 | NUR ---
Pre operative teaching printed and given to patient .
--- NOTE | 2020-10-18 11:20 | NUR ---
Seen and examined by Dr. Hardwick explained surgical procedure and verbalized understanding.
[2020-10-18 12:01] VITALS: BP_SYST 130
[2020-10-18] MEDS ORDERED: ONDANSETRON HCL 4 MG/2 ML VIAL IVP ONE (13:21)
[2020-10-18] MEDS ORDERED: NS 1000 ML IV.SOLN IV ONE (13:21)
[2020-10-18] MEDS ORDERED: MIDAZOLAM HCL 5 MG/5 ML VIAL IVP ONE (13:21)
[2020-10-18] MEDS ORDERED: DESFLURANE 15 MIN GAS INH ONE (13:21)
[2020-10-18] MEDS ORDERED: IOHEXOL 300 mgI/mL, 50 mL INFUS..BTL IV ONE (13:21)
[2020-10-18] MEDS ORDERED: ePHEDrine sulfate 50 MG/ML VIAL IVP ONE (13:21)
[2020-10-18] MEDS ORDERED: fentaNYL CITRATE/PF 100 MCG/2 ML AMP IVP ONE (13:21)
[2020-10-18] MEDS ORDERED: KETOROLAC TROMETHAMINE 30 MG VIAL IVP ONE (13:21)
[2020-10-18] MEDS ORDERED: NEOSTIGMINE METHYLSULFATE 1 MG/ML, 10 ML VIAL IVP ONE (13:21)
[2020-10-18] MEDS ORDERED: CEFAZOLIN 2 GM IVPB PREMIX 50 ML IV ONE (13:21)
[2020-10-18] MEDS ORDERED: LR 1,000 ML IV.SOLN IV ONE (13:21)
[2020-10-18] MEDS ORDERED: NS IRRIG SOLN 1000 ML IR ONE (13:21)
[2020-10-18] MEDS ORDERED: GLYCOPYRROLATE 0.2 MG/ML VIAL IJ ONE (13:21)
[2020-10-18] MEDS ORDERED: PROPOFOL 200MG/ 20ML VIAL (DIPRIVAN) IV ONE (13:21)
[2020-10-18] MEDS ORDERED: DEXAMETHASONE SOD PHOSPHATE 4 MG/ML VIAL IVP ONE (13:21)
[2020-10-18] MEDS ORDERED: ROCURONIUM BROMIDE 10 MG/ML (ZEMURON) IV ONE (13:21)
[2020-10-18] MEDS ORDERED: hydrALAZINE HCL 20 MG/ML VIAL IVP PRN (14:15)
[2020-10-18] MEDS ORDERED: LR 1,000 ML IV SCH (14:15)
[2020-10-18] MEDS ORDERED: MEPERIDINE HCL/PF 25 MG/ML DISP.SYRIN IVP PRN (14:15)
[2020-10-18] MEDS ORDERED: METOCLOPRAMIDE HCL 10 MG/2 ML VIAL IVP PRN (14:15)
[2020-10-18] MEDS ORDERED: MIDAZOLAM HCL 2 MG/2 ML VIAL (VERSED) IVP PRN (14:15)
[2020-10-18] MEDS ORDERED: HYDROmorphone 1 MG INJ. 1 MG/ML AMPUL IVP PRN (14:15)
[2020-10-18] MEDS ORDERED: LABETALOL 100 MG/ 20ML VIAL IVP PRN (14:15)
[2020-10-18] MEDS ORDERED: ONDANSETRON HCL 4 MG/2 ML VIAL IVP PRN ×2 (14:15→14:45)
[2020-10-18 14:21] VITALS: BP_SYST 130
[2020-10-18] MEDS ORDERED: NALOXONE HCL 0.4 MG/ML AMP (NARCAN) IVP PRN ×2 (14:45→17:00)
[2020-10-18] MEDS ORDERED: HYDROmorphone 1 MG INJ. 1 MG/ML AMPUL ONE ×2 (14:53→15:09)
[2020-10-18] MEDS: HYDROmorphone 1 MG INJ. 1 MG/ML AMPUL IVP PRN ×3 (14:55→15:05)
[2020-10-18] MEDS ORDERED: ONDANSETRON HCL 4 MG/2 ML VIAL ONE (15:13)
--- NOTE | 2020-10-18 16:05 | NUR ---
rounds rec pt from rr s/p lap lisette and cholangiogram. asleep but arousable to stimuli. resp easy and unlabored. no sob noted. with 4 sites of 2x2 op sites on the abdomen. no bleeding noted. pain is tolerable at this as stated. will continue to monitor patient.
[2020-10-18 16:15] VITALS: BP_SYST 111
[2020-10-18] MEDS ORDERED: HYDROcodone/ACETAMIN 5-325 MG TAB (NORCO/ VICODIN) PO PRN (17:00)
[2020-10-18] MEDS: NACL 0.9% 1,000 ML IV SCH (17:21)
[2020-10-18] MEDS: CEFAZOLIN 2 GM IVPB PREMIX 50 ML IV SCH (17:21)
--- NOTE | 2020-10-18 18:30 | NUR ---
closing notes asleep at this time. no sob noted. was seen by dr huizar at bedside. resp easy and unlabored.no sob noted. bed to the lowest position and side rails up and locked. call light within reached
--- NOTE | 2020-10-18 19:45 | NUR ---
OPENING NOTES Received report from GONSALO Morgan. Patient resting in bed, AAOx4, breathing evenly and nonlabored on 1L of oxygen via NC. Patient has an IV on the left AC, 22g, IVF running, patient tolerating it well. Educated patient on plan of care, fall/safety precautions, call light system, patient stated understanding with return demonstration. Patient denies any pain at this time. Fall/safety precautions, will continue to monitor.
[2020-10-18 20:20] VITALS: BP_SYST 131
[2020-10-18] MEDS: ACETAMINOPHEN 325 MG TABLET PO PRN (20:25)
--- NOTE | 2020-10-18 20:25 | NUR ---
PAIN MEDICATION GIVEN Patient resting in bed, awake, breathing evenly and nonlabored on 1L of oxygen via NC. IVF running, patient tolerating it well. Patient complained of mild pain, educated patient on pain medication, nonpharmacological interventions, patient stated understanding. Administered pain medication, patient tolerated it well. Assisted patient to the bathroom. No other needs at this time. Fall/safety precautions, will continue to monitor.
--- NOTE | 2020-10-18 22:15 | NUR ---
ROUNDS Patient resting in bed, eyes closed, breathing evenly and nonlabored on 1L of oxygen via NC. IVF running, patient tolerating it well. No s/s of distress at this time, no other needs at this time. Fall/safety precautions, will continue to monitor.
[2020-10-19 00:30] VITALS: BP_SYST 133
[2020-10-19] MEDS: HYDROmorphone 1 MG INJ. 1 MG/ML AMPUL IVP PRN ×2 (00:40→10:30)
--- NOTE | 2020-10-19 00:40 | NUR ---
PAIN MEDICATION GIVEN Patient resting in bed, awake, breathing evenly and nonlabored on 1L of oxygen via NC. IVF running, patient tolerating it well. Patient complained of severe pain, educated patient on pain medication, nonpharmacological interventions, patient stated understanding. Administered pain medication, patient tolerated it well. Educated patient on due antibiotic, patient stated understanding. Administered due medication, patient tolerating it well. Assisted patient to the bathroom. No other needs at this time. Fall/safety precautions, will continue to monitor.
[2020-10-19] MEDS: CEFAZOLIN 2 GM IVPB PREMIX 50 ML IV SCH (00:41)
[2020-10-19] MEDS: NACL 0.9% 1,000 ML IV SCH ×2 (03:21→13:00)
--- NOTE | 2020-10-19 03:21 | NUR ---
ROUNDS Patient resting in bed, awake, breathing evenly and nonlabored on 1L of oxygen via NC. IVF bag replaced, patient tolerating it well. Patient denies any pain at this time. No s/s of distress at this time, no other needs at this time. Fall/safety precautions, will continue to monitor.
[2020-10-19] MEDS: ACETAMINOPHEN 325 MG TABLET PO PRN ×2 (06:16→13:01)
--- NOTE | 2020-10-19 06:16 | NUR ---
CLOSING NOTES Patient resting in bed, awake, breathing evenly and nonlabored on 1L of oxygen via NC. IVF running, patient tolerating it well. Patient complained of mild pain, educated patient on pain medication, nonpharmacological interventions, patient stated understanding. Administered pain medication, patient tolerated it well. Assisted patient to the bathroom. No other needs at this time. Needs met throughout the shift. Fall/safety precautions, will continue to monitor.
[2020-10-19 07:06] LABS: BASOPHILS # (AUTO) 0.1 K/uL (0.0-0.2); BASOPHILS % (AUTO) 1.3 % (0.0-2.0); EOSINOPHILS % (AUTO) 0.1 % (0.0-4.0); HEMATOCRIT 37.1 % (36-48); HEMOGLOBIN 12.3 g/dL (12.0-16.0); LYMPHOCYTES # (AUTO) 1.3 K/uL (1.0-5.5); LYMPHOCYTES % (AUTO) 14.3 % (20.5-51.5); MEAN CORPUSCULAR HEMOGLOBIN 31 pg (27-31); MEAN CORPUSCULAR HGB CONC 33 % (32-36); MEAN CORPUSCULAR VOLUME 95 fL (79.0-98.0); MONOCYTES # (AUTO) 0.4 K/uL (0.0-1.0); MONOCYTES % (AUTO) 4.4 % (1.7-9.3); NEUTROPHILS # (AUTO) 7.3 K/uL (1.8-7.7); NEUTROPHILS % (AUTO) 79.9 % (40.0-70.0); PLATELET COUNT (AUTO) 238 K/uL (130-430); RED BLOOD CELL COUNT(AUTO) 3.92 MIL/uL (4.2-6.2); RED CELL DISTRIBUTION WIDTH 12.8 % (9.0-15.0); WHITE BLOOD COUNT (AUTO) 9.2 K/uL (4.8-10.8)
[2020-10-19 07:31] LABS: ALBUMIN 3.3 g/dL (3.4-4.8); CALCIUM 8.1 mg/dL (8.4-11.0); CREATININE 0.72 mg/dL (0.55-1.30); POTASSIUM 4.2 mmol/L (3.5-5.1); TOTAL BILIRUBIN 0.4 mg/dL (0.0-1.0)
[2020-10-19 08:00] VITALS: BP_SYST 128
[2020-10-19] MEDS ORDERED: lisinopriL 5 MG TABLET PO SCH (09:00)
[2020-10-19] MEDS ORDERED: ATORVASTATIN 10 MG TABLET PO SCH (09:00)
[2020-10-19 12:20] VITALS: BP_SYST 121
[2020-10-19 12:47] VITALS: BP_SYST 128
--- NOTE | 2020-10-19 13:45 | NUR ---
DR. Geovani Olivo here at this time visiting patient. Patient states that she is not passing gas only burping at this time. Patient states that it help when she lays on her right side. Dr. olivo stated he will put in new orders for patient. Patient states that she is unsure if she feels she is ready to discharge. Per Dr. Olivo if patient decides she is not ready to let patient stay overnight.
[2020-10-19] MEDS: SIMETHICONE 80 MG TAB.CHEW PO PRN ×2 (13:52→17:37)
[2020-10-19] MEDS ORDERED: METOCLOPRAMIDE HCL 10 MG TABLET PO ONE (14:00)
[2020-10-19] MEDS ORDERED: BISACODYL 10 MG/SUPPOSITORY RC ONE (14:00)
[2020-10-19 16:15] VITALS: BP_SYST 111
--- NOTE | 2020-10-19 18:27 | NUR ---
Discharge verbal and written discharge instructions given to patient. all questions answered. pt requested incision dressings not to be changed she stated she wanted to take a shower once she got home. supplies and education given on dressing change.
== END 2020-10-19 18:27 | disposition home or self-care (01) | DRG 419 ==
LOC: SED 07:06 → SMU 08:59
PROVIDERS: ADMIT Specialist; ATTEND Specialist
PROC: 0FT44ZZ Resection of Gallbladder, Percutaneous Endoscopic Approach (ICD-10-PCS; principal; 2020-10-18 13:21)
DX: K80.62 Calculus of gallbladder and bile duct with acute cholecystitis without obstruction (principal); E78.5 Hyperlipidemia, unspecified; Z20.822 Contact with and (suspected) exposure to COVID-19; K76.0 Fatty (change of) liver, not elsewhere classified; J45.909 Unspecified asthma, uncomplicated; E66.01 Morbid (severe) obesity due to excess calories; I10 Essential (primary) hypertension; Z79.82 Long term (current) use of aspirin; Z79.899 Other long term (current) drug therapy; Z91.018 Allergy to other foods; Z90.49 Acquired absence of other specified parts of digestive tract; Z68.32 Body mass index [BMI] 32.0-32.9, adult
CPT/HCPCS: 36415; 71046-TC; 74300; 76700-TC; 80053; 84703; 85025; 85610-TC; 87081; 88304; 94760; C1727; J0690; J1100; J1170; J1885; J2250; J2405; J2704; J2710; J3010; J3490; J7030; J7120; J8597; Q9967

== ENCOUNTER 2020-11-03 08:20 | Outpatient (CLI) | payer OTHER ==
[~2020-11-03 08:20] MED LIST changes: -ASA81 PO; -FERR-69 PO; +LIP10 PO; -LIP40 PO; -LISI2.5T48 PO; -MULT-1117; -VIT1TABL94 PO
== END 2020-11-03 19:58 | disposition home or self-care (01) ==
LOC: SMA 08:20
PROVIDERS: ATTEND Obstetrics & Gynecology
DX: Z01.419 Encounter for gynecological examination (general) (routine) without abnormal findings (principal); N64.4 Mastodynia
CPT/HCPCS: 77066

== ENCOUNTER 2021-06-29 11:47 | Outpatient (CLI) | payer OTHER | END 2021-06-29 19:05 | disposition home or self-care (01) | LOC: SLB 11:47 | PROVIDERS: ATTEND Internal Medicine | DX: R07.0 Pain in throat (principal); Z20.822 Contact with and (suspected) exposure to COVID-19 | CPT/HCPCS: 36415; 86403; 86710; 87081; C9803; U0003 ==

== ENCOUNTER 2021-06-30 07:46 | Outpatient (CLI) | payer OTHER ==
[2021-06-30 10:17] LABS: BILIRUBIN,URINE NEGATIVE (NEGATIVE); BLOOD, URINE NEGATIVE (NEGATIVE); CLARITY/URINE CLEAR (CLEAR); COLOR,URINE YELLOW (YELLOW); GLUCOSE,URINE NEGATIVE (NEGATIVE); KETONES,URINE NEGATIVE (NEGATIVE); LEUKOCYTE ESTERASE ,URINE NEGATIVE (NEGATIVE); NITRITE, URINE NEGATIVE (NEGATIVE); PROTEIN URINE NEGATIVE (NEGATIVE); UROBILINOGEN,URINE 0.2 (0.2-1.0)
[2021-06-30 10:17] LABS: BASOPHILS % (AUTO) 0.5 % (0.0-2.0); EOSINOPHILS # (AUTO) 0.2 K/uL (0.0-0.4); EOSINOPHILS % (AUTO) 2.2 % (0.0-4.0); HEMATOCRIT 40.6 % (36-48); HEMOGLOBIN 13.9 g/dL (12.0-16.0); LYMPHOCYTES # (AUTO) 1.2 K/uL (1.0-5.5); LYMPHOCYTES % (AUTO) 16.7 % (20.5-51.5); MEAN CORPUSCULAR HEMOGLOBIN 31 pg (27-31); MEAN CORPUSCULAR HGB CONC 34 % (32-36); MEAN CORPUSCULAR VOLUME 92 fL (79.0-98.0); MONOCYTES # (AUTO) 0.4 K/uL (0.0-1.0); MONOCYTES % (AUTO) 5.4 % (1.7-9.3); NEUTROPHILS # (AUTO) 5.5 K/uL (1.8-7.7); NEUTROPHILS % (AUTO) 75.2 % (40.0-70.0); PLATELET COUNT (AUTO) 284 K/uL (130-430); RED BLOOD CELL COUNT(AUTO) 4.42 MIL/uL (4.2-6.2); WHITE BLOOD COUNT (AUTO) 7.3 K/uL (4.8-10.8)
[2021-06-30 10:34] LABS: ALBUMIN 3.8 g/dL (3.4-4.8); CALCIUM 8.7 mg/dL (8.4-11.0); CREATININE 0.64 mg/dL (0.55-1.30); POTASSIUM 4.2 mmol/L (3.5-5.1); THYROID STIMULATING HORMONE 1.19 uIu/mL (0.36-3.74); TOTAL BILIRUBIN 0.8 mg/dL (0.0-1.0)
[2021-07-01 06:06] LABS: HEMOGLOBIN A1C 5.4 % (4.8-5.6)
== END 2021-06-30 20:55 | disposition home or self-care (01) ==
LOC: SLB 07:46
PROVIDERS: ATTEND Internal Medicine
DX: D50.0 Iron deficiency anemia secondary to blood loss (chronic) (principal); I10 Essential (primary) hypertension; E55.9 Vitamin D deficiency, unspecified
CPT/HCPCS: 36415; 80053; 80061; 81003; 82306; 82607; 83036; 84443; 85025

== ENCOUNTER 2021-12-29 07:33 | Outpatient (CLI) | payer OTHER ==
[2021-12-29 11:52] LABS: ALBUMIN 3.6 g/dL (3.4-4.8); CALCIUM 8.1 mg/dL (8.4-11.0); CREATININE 0.75 mg/dL (0.55-1.30); POTASSIUM 4.2 mmol/L (3.5-5.1); THYROID STIMULATING HORMONE 1.76 uIu/mL (0.36-3.74); TOTAL BILIRUBIN 0.5 mg/dL (0.0-1.0)
[2021-12-29 12:31] LABS: BASOPHILS % (AUTO) 0.4 % (0.0-2.0); EOSINOPHILS % (AUTO) 0.6 % (0.0-4.0); HEMATOCRIT 38.5 % (36-48); HEMOGLOBIN 13.2 g/dL (12.0-16.0); LYMPHOCYTES # (AUTO) 1.6 K/uL (1.0-5.5); LYMPHOCYTES % (AUTO) 25.3 % (20.5-51.5); MEAN CORPUSCULAR HEMOGLOBIN 32 pg (27-31); MEAN CORPUSCULAR HGB CONC 34 % (32-36); MEAN CORPUSCULAR VOLUME 93 fL (79.0-98.0); MONOCYTES # (AUTO) 0.3 K/uL (0.0-1.0); MONOCYTES % (AUTO) 4.7 % (1.7-9.3); NEUTROPHILS # (AUTO) 4.4 K/uL (1.8-7.7); PLATELET COUNT (AUTO) 281 K/uL (130-430); RED BLOOD CELL COUNT(AUTO) 4.16 MIL/uL (4.2-6.2); RED CELL DISTRIBUTION WIDTH 12.7 % (9.0-15.0); WHITE BLOOD COUNT (AUTO) 6.4 K/uL (4.8-10.8)
[2021-12-30 07:08] LABS: HEMOGLOBIN A1C 5.3 % (4.8-5.6)
== END 2021-12-29 19:55 | disposition home or self-care (01) ==
LOC: SLB 07:33
PROVIDERS: ATTEND Internal Medicine
DX: I10 Essential (primary) hypertension (principal); R73.9 Hyperglycemia, unspecified; E78.5 Hyperlipidemia, unspecified; E56.9 Vitamin deficiency, unspecified
CPT/HCPCS: 36415; 80053; 80061; 82306; 82607; 83036; 84443; 85025

== ENCOUNTER 2022-01-24 07:08 | Day surgery (SDC) | payer OTHER ==
[~2022-01-24] VITALS: Ht 177.8 cm; Wt 99.8 kg
[2022-01-24] MEDS ORDERED: DIPHENHYDRAMINE INJ 50 MG/ML VIAL ONE (09:30)
[2022-01-24] MEDS ORDERED: MIDAZOLAM HCL 5 MG/5 ML VIAL ONE (09:30)
[2022-01-24] MEDS ORDERED: fentaNYL CITRATE/PF 100 MCG/2 ML AMP ONE ×2 (09:30→09:44)
[2022-01-24 13:59] VITALS: BP_SYST 132
== END 2022-01-24 11:25 | disposition home or self-care (01) ==
LOC: SDS 07:08 → SMU 07:15 → SDS 11:25
PROVIDERS: ATTEND Internal Medicine
DX: R19.4 Change in bowel habit (principal); K57.30 Diverticulosis of large intestine without perforation or abscess without bleeding; K64.8 Other hemorrhoids; R19.34 Left lower quadrant abdominal rigidity; Z79.899 Other long term (current) drug therapy; Z20.822 Contact with and (suspected) exposure to COVID-19
CPT/HCPCS: 36415; 45380; 87426; 88305; 99152; G0378; J1200; J2250; J3010

== ENCOUNTER 2022-01-27 08:45 | Outpatient (CLI) | payer OTHER | END 2022-01-27 19:07 | disposition home or self-care (01) | LOC: SMA 08:45 | PROVIDERS: ATTEND Obstetrics & Gynecology | DX: Z12.31 Encounter for screening mammogram for malignant neoplasm of breast (principal) | CPT/HCPCS: 77067 ==